=== PATIENT | female | born 1985 | race Caucasian/White ===

== ENCOUNTER 2024-11-14 15:59 | Emergency (ER) | payer MEDICAID ==
[~2024-11-14] VITALS: Ht 152.4 cm; Wt 67.0 kg
[2024-11-14 16:09] VITALS: TEMP 98.1
[2024-11-14] MEDS ORDERED: IBUP-1492 PO (19:54)
[2024-11-14 20:04] VITALS: BP 117/62; PULSE 66; RESP 18; O2SAT 99
== END 2024-11-14 20:30 | disposition home or self-care (01) ==
LOC: EMS 16:01
DX: S30.0XXA Contusion of lower back and pelvis, initial encounter (principal); M53.3 Sacrococcygeal disorders, not elsewhere classified; Z88.2 Allergy status to sulfonamides; W19.XXXA Unspecified fall, initial encounter; Y93.89 Activity, other specified; Y92.89 Other specified places as the place of occurrence of the external cause; Y99.8 Other external cause status
CPT/HCPCS: 72220; 99283